=== PATIENT | female | born 1980 | race Caucasian/White ===

== ENCOUNTER 2024-02-11 09:27 | Outpatient (CLI) | payer BC, SELFPAY ==
--- NOTE | ~2024-02-11 | MR_ITS ---
MR breast BI wo/w con 02/15/2024 11:02 CDT INDICATION: Left nipple discharge. TECHNIQUE: MRI of the breasts perform using standard protocol pre-and post IV contrast with the follo wing sequences: Axial T2 STIR, axial T1, axial vibrant T1 with fat suppression precontrast and multip hasic postcontrast. COMPARISON: Screening mammogram dated 09/11/2023, diagnostic mammogram dated 01/13/2024 and ultrasound dated 01/13/2024 FINDINGS: There are no abnormalities on the precontrast sequences. There is mild background parenchym al enhancement. In the upper inner quadrant of the right breast anteriorly at 1:00 there is a 6 x 4 x 4 mm heterogeneously nonmasslike enhancement with rapid plateau enhancement. No evidence of signal a bnormalities in the axillary or internal mammary node distributions. LEFT BREAST: No signal abnormalities on precontrast sequences. There is mild background parenchymal enhancement. In the lower inner quadrant of the left breast posteriorly there is a mass with rapid pl ateau enhancement measuring 5 x 4 x 3 mm. This mass is hypointense on T2 fat suppression, likely kristin gn intramammary lymph node. No evidence of signal abnormalities in the axillary or internal mammary node distributions.] IMPRESSION: 1: Right breast: Focal 6 mm area of nonmass-like enhancement upper inner quadrant of the right breas t anteriorly. Recommend second look ultrasound. BI-RADS CATEGORY 0 - INCOMPLETE STUDY, NEED ADDITIONA L IMAGING EVALUATION. 2: Left breast: Negative. No evidence of malignancy. BI-RADS category 2. Recommend annual mammogr aphy follow-up. Follow-up MRI may be useful for supplementing mammographic evaluation as clinically indicated. Reviewed, dictated and finalized at location A. IMPRESSION: 1: Right breast: Focal 6 mm area of nonmass-like enhancement upper inner quadr ant of the right breast anteriorly. Recommend second look ultrasound. BI-RADS C ATEGORY 0 - INCOMPLETE STUDY, NEED ADDITIONAL IMAGING EVALUATION. 2: Left breast: Negative. No evidence of malignancy. BI-RADS category 2. Re commend annual mammography follow-up. Follow-up MRI may be useful for supplementing mammographic evaluation as clinic ally indicated.
== END 2024-02-11 09:28 | disposition home or self-care (01) ==
LOC: ANHIMG 09:31
PROVIDERS: Visit Provider Surgery
DX: N64.52 Nipple discharge (principal); R92.8 Other abnormal and inconclusive findings on diagnostic imaging of breast
CPT/HCPCS: 77049; A9577; C8908

== ENCOUNTER 2024-02-24 14:18 | Outpatient (CLI) | payer BC, SELFPAY ==
--- NOTE | ~2024-02-24 | US_ITS ---
US breast RT limited 02/24/2024 15:15 Indication: Nonmasslike enhancement seen in the right breast on prior MRI examination performed 2023. Repeat ultrasound recommended for further assessment. Procedure: High-resolution Limited ultrasound of the right breast Comparison: MRI dated 02/11/2024 and mammogram dated 09/11/2023 Findings: No discrete abnormal masses are identified in the area of concern in the right breast in th e upper inner quadrant pain. At 9:00, 6 cm from the nipple there is a 5 mm cyst. At 8:00, 5 cm from t he nipple, there is a 1.4 cm cyst. At 9:00, 4 cm from the nipple there is an oval circumscribed hypoe choic mass with mixed posterior attenuation, parallel orientation measuring 9 mm. No internal vascula rity. At 10:00, 6 cm from the nipple there is an oval circumscribed hypoechoic mass with mixed steam presser ior attenuation, parallel orientation, no internal vascularity measuring 9 mm. Impression: 1: Probable benign right breast masses. No sonographic correlate to area of nonmass-like enhancement seen on previous MRI examination. BI-RADS CATEGORY 3-PROBABLY BENIGN FINDING RECOMMENDATION: Six-month follow-up diagnostic right mammogram and right breast ultrasound recommende d. Reviewed, dictated and finalized at location A. Impression: 1: Probable benign right breast masses. No sonographic correlate to area of non mass-like enhancement seen on previous MRI examination. BI-RADS CATEGORY 3-PROBABLY BENIGN FINDING RECOMMENDATION: Six-month follow-up diagnostic right mammogram and right breast ultrasound recommended.
== END 2024-02-24 14:19 | disposition home or self-care (01) ==
LOC: ANHIMG 14:20
PROVIDERS: Visit Provider Surgery
DX: R92.8 Other abnormal and inconclusive findings on diagnostic imaging of breast (principal)
CPT/HCPCS: 76642

== ENCOUNTER 2024-08-23 09:58 | Outpatient (CLI) | payer OTHER, SELFPAY ==
--- NOTE | ~2024-08-23 | MMUS_ITS ---
EXAMINATION: MM diagnostic melanie BI w chester, US breast BI complete HISTORY: Right breast lump. TECHNIQUE: Additional 3-D tomosynthesis images of the breasts were performed and synthetic 2-D images were generated. CAD analysis was submitted and interpreted. High resolution complete bilateral breas t ultrasound was performed. COMPARISON: Comparison to multiple prior studies sequentially, with oldest reviewed study dated 08/17. BREAST PARENCHYMAL COMPOSITION: Dense: The breasts are extremely dense, which lowers the sensitivity of mammography. FINDINGS: MAMMOGRAPHIC FINDINGS: The breasts are stable. No new masses, calcifications or architectural distortion in either breast to suggest malignancy. ULTRASOUND: Complete US of all 4 quadrants of the breast/s and retroareolar region was reviewed. Right breast: At 6:00, 3 cm from the nipple, there is an oval hypoechoic circumscribed mass measuring 4 mm with parallel orientation, no posterior features and no significant internal vascularity. At 8: 00, 6 cm from the nipple there is an oval hypoechoic mass measuring 11 x 5 x 12 mm with parallel orie ntation, no significant posterior features. There is internal vascularity. At 9:00, 6 cm from the nip ple there is an oval hypoechoic 9 mm mass without posterior features or internal vascularity without significant change from prior study allowing for differences of technique. At 10:00, 6 cm from the ni pple there is an oval parallel oriented hypoechoic 7 mm mass with some posterior acoustic enhancement and no significant internal vascularity, likely benign and unchanged. At 10:00, 6 cm from the nipple there is an oval circumscribed parallel oriented hypoechoic mass measuring 8 x 8 x 3 mm without sign ificant change from prior examination allowing for differences of technique. Left breast: At 4:00, 5 cm from the nipple there is an oval parallel oriented hypoechoic 9 mm mass wi thout posterior features or internal vascularity. IMPRESSION: 1. 12 mm right breast mass at 8:00, 6 cm from the nipple, not definitely seen on prior examination. T here is associated internal vascularity. Ultrasound-guided biopsy recommended. 2. Additional bilateral breast masses described above by ultrasound are likely benign. Six-month foll ow-up limited bilateral breast ultrasound is recommended. BI-RADS category 4, suspicious findings. Reviewed, dictated and finalized at location B. IMPRESSION: 1. 12 mm right breast mass at 8:00, 6 cm from the nipple, not definitely seen o n prior examination. There is associated internal vascularity. Ultrasound-guide d biopsy recommended. 2. Additional bilateral breast masses described above by ultrasound are likely benign. Six-month follow-up limited bilateral breast ultrasound is recommended. BI-RADS category 4, suspicious findings.
== END 2024-08-23 09:59 | disposition home or self-care (01) ==
PROVIDERS: Visit Provider Surgery
DX: N63.41 Unspecified lump in right breast, subareolar (principal); N63.15 Unspecified lump in the right breast, overlapping quadrants; N64.52 Nipple discharge; R92.8 Other abnormal and inconclusive findings on diagnostic imaging of breast
CPT/HCPCS: 76641; 77062; 77066; G0279

== ENCOUNTER 2024-09-28 08:36 | Outpatient (CLI) | payer OTHER, SELFPAY ==
--- NOTE | ~2024-09-28 | MMUS_ITS ---
EXAMINATION: 1. US breast biopsy RT w image 2. MM post biopsy diagnostic RT DATE: 09/28/2024 10:04 INDICATION: 12 mm right breast mass at 8:00. TECHNIQUE: The procedure including the risks, benefits, and alternatives was discussed with the patie nt. Risks discussed included bleeding and infection. The patient understood the risks and agreed to p roceed. The skin of the right breast was prepped and draped in usual sterile fashion. Anesthetic was administered with 1% lidocaine at the skin and 1% lidocaine with epinephrine in the deeper tissue. A 10-gauge vacuum-assisted core biopsy needle was then used to obtain 5 core biopsy specimens under c ontinuous sonographic guidance. A Mammotome HydroMARK open coil marker was placed under sonographic g uidance The entry site was cleaned and dressed. There were no immediate complications. A two-view mammogram was obtained to document marker placement. FINDINGS: Ultrasound images demonstrate the needle in a 12 mm mass in the right breast at 8:00. Breast composition: The breast is extremely dense, which lowers the sensitivity of mammography. Mammogram: There is a marker in the right breast at 8:00. IMPRESSION: 1. Successful ultrasound-guided vacuum-assisted biopsy of a 12 mm mass in the right breast at 8:00 wi th post procedure mammogram for marker placement. Reviewed, dictated and finalized at location A. D AGENT IMPRESSION: 1. Successful ultrasound-guided vacuum-assisted biopsy of a 12 mm mass in the r ight breast at 8:00 with post procedure mammogram for marker placement.
== END 2024-09-28 08:37 | disposition home or self-care (01) ==
PROVIDERS: Visit Provider Surgery
DX: R92.8 Other abnormal and inconclusive findings on diagnostic imaging of breast (principal); D24.1 Benign neoplasm of right breast
CPT/HCPCS: 19083; 77065; 88305; A4648

== ENCOUNTER 2025-02-10 08:12 | Outpatient (CLI) | payer OTHER, SELFPAY ==
--- NOTE | ~2025-02-10 | US_ITS ---
EXAMINATION: US breast BI limited HISTORY: 44yo woman presents after right breast biopsy yielding fibroadenoma for followup US High resolution focused bilateral breast ultrasound was performed. COMPARISON: Reference is made to previous ultrasound dated 09/28/2024 and dating back to 02/24/2024 FINDINGS: ULTRASOUND: Redemonstration of multiple foci within the bilateral breast tissue with identical morphology to this patient's biopsy-proven fibroadenoma for which no further dedicated follow-up is necessary. The previously biopsied site at the 8:00 position of the right breast is not visualized on the static images. In detail: At the 6:00 position of the right breast approximately 3 cm from the nipple is a well-circumscribed a vascular focus of decreased echogenicity measuring 4.1 x 4.1 x 2.3 mm, presumably a fibroadenoma. At the 9:00 position of the right breast approximately 6 cm from the nipple is a well-circumscribed a vascular focus of decreased echogenicity measuring 8.8 x 8.8 x 3.7 mm, presumably a fibroadenoma. At the 10:00 position of the right breast approximately 6 cm from the nipple is a well-circumscribed avascular focus of decreased echogenicity measuring 7.5 x 2.9 x 6.0 mm, presumably a fibroadenoma. Also at the 10:00 position of the right breast approximately 6 cm from the nipple is a well-circumscr ibed avascular focus of decreased echogenicity measuring 8.1 x 2.9 x 7.8 mm, presumably a fibroadenom a. At the 4:00 position of the left breast approximately 5 cm from the nipple is a well-circumscribed av ascular focus of decreased echogenicity measuring 7.7 x 3.8 x 2.5 mm, presumably a fibroadenoma. IMPRESSION: Multiple fibroadenomas within the bilateral breast tissue, now biopsy-proven, for which no further de dicated follow-up is needed Resumption of yearly follow-up mammography is recommended. BI-RADS Category 2: Benign finding(s). Reviewed, dictated and finalized at location A. IMPRESSION: Multiple fibroadenomas within the bilateral breast tissue, now biopsy-proven, f or which no further dedicated follow-up is needed Resumption of yearly follow-up mammography is recommended. BI-RADS Category 2: Benign finding(s).
--- OUTSIDE RECORDS SUMMARY | 2025-02-10 08:19 | XMS_ITS | Referral Summary ---
Author Organization [address] Address [address] [place] [address] Care Team Providers Care Outside Sales Advertising Executive Name Role Phone Alba Mendez Primary Care Provider [phone] Encounters Date Type Department Care Team Description 01/20/2025 1:45 PM REED OR WIND INSTRUMENT REPAIRER Office Visit [facility] Neurosurgery [address] [facility] Medical Office Building [address] [place] [address] David Aragon NP Lumbar disc disease with radiculopathy 11/30/[address] [facility] Scheduling [address] [place] [address] David Aragon NP from Last 3 Months Allergies No known active allergies Medications Edwards-Linyah 0.25-35 mg-mcg per tablet 06/26/2023 Active topiramate (TOPAMAX) 50 mg tablet Take 1 tablet (50 mg total) by mouth nightly at bedtime. 07/03/2024 Active Active Problems Problem Noted Date Diagnosed Date Low back pain 08/04/2023 Scoliosis of thoracolumbar spine 08/04/2023 Immunizations Immunization Administration Dates Next Due DTaP 5 Pertussis 06/16/1985, 2,04/28/1981,01/03,1980 Hep B Vaccine 05/22/2000 Hep B, Unspecified 11/20/2000,06/19/2000 IPV 06/16/1985, 2,01/03/1981,07/10 Influenza, Quadrivalent, Spl it, Intramuscular 09/01/2019,09/03/2018,10/01/2017,09/14,09/11/2014,09/23/2001,08/25/2000 Influenza, Quadrivalent, Spl it, Preservative Free, Intramuscular 11/06/2021,08/30/2020 MMR 05/20/1990,01/02/1982 Tdap 12/17/2015 Tetanus toxoid, adsorbed 04/18/1994 Social History Tobacco Use Types Packs/Day Years Used Date Smoking Tobacco: Never Smokeless Tobacco: Never Tobacco Cessation:Counseling Given: Not Answered AUDIT-C Answer Date Recorded Q1: How often do you have a drink containing alcohol? Never 07/22/2024 Q2: How many drinks containi ng alcohol do you have on a typical day when you are drinking? Patient does not drink Q3: How often do you have si x or more drinks on one occasion? Never 07/22/2024 Comments Unknown Sex and Gender Information Value Date Recorded Sex Assigned at Not on file Legal Sex Female 7:51 AM CDT Gender Identity Female 07/27/2023 1:25 PM CDT Sexual Orientation Straight 07/27/2023 1: 25 PM CDT Last Filed Vital Signs Vital Sign Reading Time Taken Comments Blood Pressure 121/74 07/22/2023 9:26 AM CDT Pulse 69 07/22/2023 9:26 AM CDT Temperature - - Respiratory Rate - - Oxygen Saturation - - Inhaled Oxygen Concentration - - Weight 59 kg (130 lb) 01/20/2025 1:52 PM REED OR WIND INSTRUMENT REPAIRER Height 157.5 cm (5' 2 ) 01/20/2025 1:52 PM REED OR WIND INSTRUMENT REPAIRER Body Mass Index 23.78 01/20/2025 1:52 PM REED OR WIND INSTRUMENT REPAIRER Plan of Treatment Not on file Insurance [facility] Care Teams Outside Sales Advertising Executive Relationship Specialty Start Date End Date Alba Mendez PA [address] [place] [address] PCP - General Family Medicine 05/14/23
--- OUTSIDE RECORDS SUMMARY | 2025-02-10 08:19 | XMS_ITS | Encounter Summary ---
Author Organization [facility] Address [facility] [place] [address] Care Team Providers Care Oil Pipe Inspector Name Role Phone None, Provider Primary Care Provider Nayla Edwards MD Primary Care Provider [phone] Encounter Details Date Type Department Care Team (Late st Contact Info) Description 04/23/2019 Abstract [facility] CONVERSION [address] [place] [address] , Generic Conversion, Social History Tobacco Use Types Packs/Day Years Used Date Smoking Tobacco: Never Assessed Comments Unknown Sex and Gender Information Value Date Recorded Sex Assigned at Not on file Legal Sex Female 9:12 PM QUICK TECHNICIAN Gender Identity Not on file Sexual Orientation Not on file documented as of this encounter Plan of Treatment Not on file documented as of this encounter Visit Diagnoses Not on filedocumented in this encounter Care Teams Oil Pipe Inspector Relationship Specialty Start Date End Date None, ProviderMD PCP - General 04/16/19 01/03/21 Nayla Wynne MD [address] [place] [address] PCP - General FAMILY PRACTICE 01/04/21 documented as of this encounter
--- OUTSIDE RECORDS SUMMARY | 2025-02-10 08:19 | XMS_ITS | Clinical Summary ---
Author Organization [address] Address Formerly [facility] [place] [address] Care Team Providers Care Consulting It Architect Name Role Phone Alba Mendez Primary Care Provider [phone] Allergies No known active allergies Medications Lanier-Linyah 0.25-35 mg-mcg per tablet 06/26/2023 Active topiramate (TOPAMAX) 50 mg tablet Take 1 tablet (50 mg total) by mouth nightly at bedtime. 07/03/2024 Active Active Problems Problem Noted Date Diagnosed Date Low back pain 08/04/2023 Scoliosis of thoracolumbar spine 08/04/2023 Encounters Date Type Department Care Team Description 01/20/2025 1:45 PM OUTSOLE ROUNDER Office Visit [facility] Neurosurgery [facility] [facility] Medical Office Building [address] [place] [address] David Aragon NP Lumbar disc disease with radiculopathy 11/30/2024 Telephone [facility] Scheduling [address] [place] [address] David Aragon NP from Last 3 Months Immunizations Immunization Administration Dates Next Due DTaP 5 Pertussis 06/16/1985, 2,04/28/1981,01/03,1980 Hep B Vaccine 05/22/2000 Hep B, Unspecified 11/20/2000,06/19/2000 IPV 06/16/1985, 2,01/03/1981,07/10 Influenza, Quadrivalent, Spl it, Intramuscular 09/01/2019,09/03/2018,10/01/2017,09/14,09/11/2014,09/23/2001,08/25/2000 Influenza, Quadrivalent, Spl it, Preservative Free, Intramuscular 11/06/2021,08/30/2020 MMR 05/20/1990,01/02/1982 Tdap 12/17/2015 Tetanus toxoid, adsorbed 04/18/1994 Medical History Medical History Date Comments Disc disorder of lumbar region Family History Medical History Relation Name Comments Diabetes Father Heart disease Father Hypertension Father Heart disease Maternal Grandfather Cancer Maternal Grandmother Stroke Maternal Grandmother Hypertension Mother Diabetes Paternal Grandfather Stroke Paternal Grandfather Relation Name Status Comments Father Maternal Grandfather Maternal Grandmother Mother Paternal Grandfather Social History Tobacco Use Types Packs/Day Years [...] Orientation Straight 07/27/2023 1: 25 PM CDT Obstetrics History Last Filed Vital Signs Vital Sign Reading Time Taken Comments Blood Pressure 121/74 07/22/2023 9:26 AM CDT Pulse 69 07/22/2023 9:26 AM CDT Temperature - - Respiratory Rate - - Oxygen Saturation - - Inhaled Oxygen Concentration - - Weight 59 kg (130 lb) 01/20/2025 1:52 PM OUTSOLE ROUNDER Height 157.5 cm (5' 2 ) 01/20/2025 1:52 PM OUTSOLE ROUNDER Body Mass Index 23.78 01/20/2025 1:52 PM OUTSOLE ROUNDER Plan of Treatment Health Maintenance Due Date Last Done Comments Cervical Cancer Screening 1980 Depression Screening 1980 Hepatitis C Screening 1980 Varicella Vaccines (1 of 2 - 13+ 2-dose series) 1993 Regular Well Visit/Exam 18-64 1998 Covid-19 Vaccine (2023- season) 2024 12/03/2021, 01/04/2021, 12/07/2020 Influenza Vaccine (#1) 2024 , 08/30/2020, 09/01/2019, Additional history exists Breast Cancer Screening-Mammogram 09/11/2024 09/11/2023, 08/14/2021 DTaP/Tdap/Td Vaccine (7 - Td or Tdap) 12/17/2025 12/17/2015, 04/18/1994, 06/16/1985, Additional history exists Hepatitis B Screening Completed 11/20/2000 , 06/19/2000, 05/22/2000 HPV Vaccines Aged Out No longer eligi ble based on patient's age to complete this topic Pneumococcal vaccine <65 Aged Out No longer eligible based on patient's age to complete this topic Insurance [facility] [employer] [facility] Care Teams Consulting It Architect Relationship Specialty Start Date End Date Alba Mendez PA [address] [place] [address] PCP - General Family Medicine 05/14/23
--- OUTSIDE RECORDS SUMMARY | 2025-02-10 08:19 | XMS_ITS | Encounter Summary ---
Author Organization [facility] Address [facility] [place] [address] Care Team Providers Care Services Delivery Driver Name Role Phone None, Provider Primary Care Provider Nayla Edwards MD Primary Care Provider [phone] Encounter Details Date Type Department Care Team (Late st Contact Info) Description 06/09/2019 Community Orders [facility] EPICCARE LINK Marcus Luna III, MD [address] [place] [id number] Social History Tobacco Use Types Packs/Day Years Used Date Smoking Tobacco: Never Smokeless Tobacco: Never Alcohol Use Standard Drinks/Week Comments Yes 0 (1 standard drink = 0.6 oz pur e alcohol) Comments No Sex and Gender Information Value Date Recorded Sex Assigned at Not on file Legal Sex Female 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
--- OUTSIDE RECORDS SUMMARY | 2025-02-10 08:19 | XMS_ITS | Clinical Summary ---
Author Organization [facility] Address Formerly [facility] [place] [address] Care Team Providers Care Occupational Medicine Officer Name Role Phone Nayla Wynne MD Primary Care Provider [phone] Allergies No known active allergies Medications MONO-LINYAH 0.25-35 MG-MCG tablet Take 1 tablet by mouth daily. 04/27/2023 Active topiramate (TOPAMAX) 50 MG Tab Take 1 tablet (50 mg total) by mouth nightly at bedtime. at bedtime. Active magnesium 250 MG tablet 11/16/2023 Active vitamin D2, ergocalciferol, (DRISDOL) 1.25 mg capsule TAKE 1 CAPSULE BY MOUTH WEEKLY FOR 12 WEEKS 02/01/2024 Active Cyanocobalamin (VITAMIN B-12) 2500 MCG SL Tab Acti ve Cholecalciferol (VITAMIN D3) 50 MCG (2000 UT) Cap Active Active Problems Problem Noted Date Diagnosed Date Low back pain 08/04/2023 Scoliosis of thoracolumbar spine 08/04/2023 Family History Medical History Relation Comments Diabetes Father Heart Father Hypertension Father Lung Cancer Father Hypertension Mother Relation Status Comments Father Mother Social History Tobacco Use Types Packs/Day Years Used Date Smoking Tobacco: Never Smokeless Tobacco: Never Tobacco Cessation:Counseling Given: Not Answered Alcohol Use Standard Drinks/Week Comments Yes 0 (1 standard drink = 0.6 oz pur e alcohol) Comments No Sex and Gender Information Value Date Recorded Sex Assigned at Not on file Legal Sex Female 9:12 PM PRINTING TABLE WORKER Gender Identity Not on file Sexual Orientation Not on file Last Filed Vital Signs Vital Sign Reading Time Taken Comments Blood Pressure 106/67 09/14/2024 2:00 PM CDT Pulse 94 09/14/2024 12:09 PM CDT Temperature 37.9 C (100.3 F) 09/14/2024 12:09 PM CDT Respiratory Rate 16 09/14/2024 12:09 PM CDT Oxygen Saturation 99% 09/14/2024 2:00 PM CDT Inhaled Oxygen Concentration - - Weight 59.4 kg (131 lb) 09/14/2024 12:09 PM CDT Height 154.9 cm (5' 1 ) 09/14/2024 12:09 PM CDT Body Mass Index 24.75 09/14/2024 12:09 PM CDT Plan of Treatment Health Maintenance Due Date Last Done Comments Cervical Cancer Screening Pap Smear (Age 30 to 64) Every 3 Years 1980 Annual Physical 1983 Hepatitis C 1998 Cervical Cancer Screening Pap with HPV Testing (Age 30 to 64) Every 5 Years 2010 Cervical Cancer Screening with HPV 2010 COVID-19 Vaccine ( season) 2024 Influenza Adult (#1) 2024 11/06/2021, 08/30/2020, 09/01/2019, Additional history exists DTaP, Tdap and Td Vaccines (7 - Td or Tdap) 12/17/2025 12/17/2015, 04/18/1994, 06/16/1985, Additional history exists Mammogram Screening 01/13/2026 01/13/2024, 09/11/2023, 08/14/2021 Hepatitis B Vaccines Completed 11/20/2000, 06/19/2000, 05/22/2000 HPV Vaccines Aged Out No longer eligi ble based on patient's age to complete this topic Meningococcal B Vaccine Aged Out No l onger eligible based on patient's age to complete this topic Meningococcal Vaccine Aged Out No kristian sheyla eligible based on patient's age to complete this topic Pneumococcal Vaccine: Pediatrics (0 to 5 Years) and At-Risk Patients (6 to 64 Years) Aged Out No longer eligible based on patient's age to complete this topic RSV Immunizations Under 20 Months Aged Out No longer eligible based on patient's age to complete this topic Procedures Procedure Name Priority Date/Time Associated Diagnosis Comments MG DIAG W LAURITA LT DIGI Routine 01/13/2024 8:41 AM PRINTING TABLE WORKER Nipple discharge from Last 3 Months or Most Recently Relevant to Health Maintenance Results * MG VALENCIAG W LAURITA LT DIGI (01/13/2024 8:41 AM PRINTING TABLE WORKER) Anatomical Region Laterality Modality Breast Left Mammography, Rad iographic Imaging 01/13/2024 9:07 AM PRINTING TABLE WORKER Narrative 01/13/2024 9:09 AM PRINTING TABLE WORKER Examination(s): LEFT DIGITAL DIAGNOSTIC MAMMOGRAM WITH TOMOSYNTHESIS LEFT US BREAST Rallyhood [id number] Exam Date: 01/13/2024 8:19 AM Clinical Indication: Female 43 years of age nipple discharge is new since last mammogram Comparison: 09/11/2023 Technique: Diagnostic left breast mammogram with standard views and ML view Tomosynthesis imaging acquisition. Study supplemented with computer aided detection program. Static LEFT breast sonographic grayscale images obtained supplemented with Doppler. Tissue density: The breast tissue is heterogeneously dense, which may obscure small masses. MAMMOGRAM FINDINGS: No mass or distortion or calcification. LEFT BREAST ULTRASOUND FINDINGS: Targeted ultrasound performed. Duct ectasia. No mass. IMPRESSION Heterogeneously dense with subareolar duct ectasia. No evidence of malignancy. RECOMMENDATION: 1: Clinical Management Left nipple discharge 2: Routine Screening Mammogram Bilateral August 2024 Clinical discussion based upon her age and personal risk factors is recommended for the following: Annual supplemental screening is encouraged for dense breast tissue. Highest sensitivity and cancer detection rate is with MRI breast with/without IV gadolinium contrast. Recommend alternate 6 months apart between MRI and mammogram for screening. If she cannot tolerate or get approval of MRI, then breast ultrasound screening is an alternative. ASSESSMENT: ACR BI-RADS CATEGORY 2 - BENIGN FINDING(S) Ordered By: MAKI CROFT Interpreted By: Gerald Espinal MD, 01/13/2024 9:07 AM us Maki Shell Croft REFUGE MANAGER MAMMO Final Resul t from Last 3 Months or Most Recently Relevant to Health Maintenance Insurance [employer] Care Teams Occupational Medicine Officer Relationship Specialty Start Date End Date Nayla Wynne MD [address] [facility] [place] [phone] PCP - General FAMILY PRACTICE 01/04/21
--- OUTSIDE RECORDS SUMMARY | 2025-02-10 08:20 | XMS_ITS | Data Portability ---
Author Organization [facility], [address] [facility] ([place]) Address [address] [place] [address] Care Team Providers Care Transition Nurse Name Role Phone NAYLA WYNNE Primary Care Provider NAYLA WYNNE Referring Provider [phone] Assessment Encounter Date Assessment Date Assessment LastModified by Organization Details LastModified Time 12/07/2024 12/07/2024 She has tried various therapies, even Linzess. She had severe diarrhea from this therefore I am going to try her on Trulance 3 mg daily. Explained it can take up to 2 weeks to see the benefits from this medication and we will give her a call to see how she is doing. Encouraged adequate water intake and incorporating more fiber, fresh fruits and vegetables and stool softeners within her daily regimen. Patient verbalized understanding of this plan and had no further questions. von Not available 12/12/2024 09:52:36 Plan of Treatment Reminders Order Date Submit Date Provider Last Modified By Organization Details Last Modified Time Details Appointments None recorded. Lab None recorded. Referral None recorded. Procedures None recorded. Surgeries None recorded. Imaging None recorded. Medication Orders Trulance 3 mg tablet 2024 025 [id number], [address] [place], [place], [id number], 09:50:11 Patient TargetsNo targets recorded. Patient InstructionsNo instructions recorded. Reason for Referral None Reported. Problems Name Problem SNOMED Code Status Onset Date Resolution Date Notes Provider Name and Address Organization Details Recorded Time Irritable bowel syndrome characterized by constipation 082709405 Active 2024 Paula Sue, CONSUMER LENDER, INVENTORY CONTROL ANALYST [address] [place] [address], [phone] 09:49:43 Problem Notes None recorded. Procedures Surgical History Date Name Laterality Status Provider Name and Address Organization Details Recorded Time Colonoscopy with biopsy completed Not Available Health Note 12/01/2024 12:18:53 Imaging Results None recorded. Procedure Notes None recorded. Medical Equipment None Reported. Medications Name Sig Start Date Stop Date Status Note LastModified by Organization Details LastModified Time cyclobenzap rine 10 mg tablet TAKE 1/2 TO 1 TABLET BY MOUTH TWICE DAILY NEEDED FOR NECK PAIN active Not Available Not Available No t Available azithromyci n 250 mg tablet TAKE 2 TABLET BY MOUTH TODAY THEN 1 TABLET DAILY TILL GONE 12/07 completed Not Available Not Available Not Available prednisone 20 mg tablet TAKE 1 TABLET BY MOUTH DAILY 12/07 completed Not Available Not Available Not Available topiramate 25 mg tablet TAKE 2 TABLETS BY MOUTH AT BEDTIME 12/07 completed Not Available Not Available Not Available ergocalcife rol (vitamin D2) 1,250 mcg (50,000 unit) capsule TAKE 1 CAPSULE BY MOUTH WEEKLY FOR 12 WEEKS active Not Available Not Available No t Available albuterol sulfate HFA 90 mcg/actuati on aerosol inhaler INHALE 2 PUFFS BY MOUTH EVERY 4 HOURS NEEDED active Not Available Not Available No t Available ondansetron 4 mg disintegrat ing tablet DISSOLVE 1 TABLET ON THE TONGUE THREE TIMES DAILY NEEDED FOR NAUSEA active Not Available Not Available No t Available cefdinir 300 mg capsule TAKE 1 CAPSULE BY MOUTH TWICE DAILY 12/07 completed Not Available Not Available Not Available Vitamin B6 100 mg tablet Take 1 tablet every day by oral route. 12/07 completed Not Available Not Available Not Available topiramate 50 mg tablet TAKE 1 TABLET AT BEDTIME active Not Available Not Available No t Available magnesium 250mg daily active Not Available Not Available No t Available Estarylla 0.25 mg-0.035 mg tablet TAKE 1 TABLET BY MOUTH DAILY active Not Available Not Available No t Available Trulance 3 mg tablet Take 1 tablet every day by oral route. 2024 active Not Available Not Available Not Avai lable vitamin B12 2,500 mcg-folic acid 400 mcg disintegrat ing tablet Take 1 tablet every day by oral route. active Not Available Not Available No t Available Vitals None Recorded Social History Question Answer Notes LastModified by Organizat ion Details LastModified Time Tobacco Smoking Status Never Smoker Not Available Health Note 12/01/2024 12:18:54 Do You Have An Advance Directive? No [email or web address] Information not available 12/01/2024 What Is Your Level Of Alcohol Consumption? Occasional [email or web address] Information not available 12/01/2024 How Many Times Per Week Do You Consume Alcohol? Less Than 1 Time Per Week [email or web address] Information not available 12/01/2024 What Is Your Level Of Caffeine Consumption? Occasional [email or web address] Information not available 12/01/2024 Are You Currently Employed? 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 1-2 Times Per Week [email or web address] Information not available 12/01/2024 What Was The Date Of Your Most Recent Tobacco Screening? 12/07/2024 [email or web address] Information not available 12/01/2024 What Is Your Relationship Status? [email or web address] Information not available 12/01/2024 Do You Use Any Illicit Or Recreational Drugs? No [email or web address] Information not available 12/01/2024 Sex: Unknown Functional Status Question Answer Note LastModified by Organizat ion Details LastModified Time What is your exercise level? Occasional [email or web address] Information not available 12/01/2024 Mental Status None recorded. Family History Relationship Description Onset Age of this Age Resolved Age Notes LastModified by Organization Details LastModified Time Mother Arthritis [email or web address] Not available 12/01/2024 12:18:52 Mother Chronic obstructive pulmonary disease [email or web address] Not available 2024 12:18:52 Mother Hypertensive disorder [email or web address] Not available 2024 12:18:52 Mother Hypercholest erolemia [email or web address] Not available 2024 12:18:52 Mother Osteoporosis [email or web address] Not availa ble 12/01/2024 12:18:52 Maternal Grandmother Arthritis [email or web address] Not available 11/16 12:18:52 Maternal Grandmother Family history of malignant neoplasm colon- dx at age 90 [email or web address] Not available 12/07/2024 09:37:40 Maternal Grandmother Osteoporosis [email or web address] Not available 0 12/01/2024 12:18:52 Maternal Grandmother Cerebrovascu lar accident [email or web address] Not available 12:18:52 Father Family history of malignant neoplasm [email or web address] Not available 2024 12:18:52 Father Chronic obstructive pulmonary disease [email or web address] Not available 2024 12:18:52 Father Diabetes mellitus [email or web address] Not available 2024 12:18:52 Father Heart disease [email or web address] Not available 2024 12:18:52 Father Hypertensive disorder [email or web address] Not available 2024 12:18:52 Father Hypercholest erolemia [email or web address] Not available 2024 12:18:52 Paternal Grandmother Diabetes mellitus [email or web address] Not available 2024 12:18:52 Maternal Grandfather Heart disease [email or web address] Not available 2024 12:18:52 Paternal Grandfather Cerebrovascu lar accident [email or web address] Not available 12:18:52 Sister Disorder of thyroid gland [email or web address] Not available 2024 12:18:52 Medical History Condition Response Anxiety Disorder N Diabetes N Attention-deficit Hyperactivity Disorder N Bleeding Disorder N High Blood Pressure N Arthritis N Hyperlipidemia N Cancer N Stroke N Thyroid Problems N Asthma N Depression N COPD N Anemia N Seizures N Heart Disease N Fibromyalgia N Osteoporosis N Kidney Disease N Gynecological HistoryNo gynecological history recorded. Obstetrics History GPAL:G 0 P 0 0 0 0 Past Encounters Encounter ID Performer Location Encounter Start Date Encounter Closed Date Diagnosis/Indication Diagnosis SNOMED-CT Code Diagnosis ICD10 Code Diagnosis Note [id number] Paula Sue, CONSUMER LENDER, INVENTORY CONTROL ANALYST [facility] [address] [place] [address] 12/07/2024 09:27:27 12/07/2024 16:24:27 Irritable bowel syndrome characterized by constipation 613817172 K58.1 Health Concerns Section Related Observation LastModified by Organization Detai ls LastModified Time None Recorded Concern Status LastModified by Organization Details LastModified Time None Recorded Advance Directives Directive N: Payers Encounter Date Sequence Insurance Name Policy Number Policy Carty Covered Member ID Carty Member ID Guarantor Name 12/07/2024 1 BERYLJESSICA [id number] Wei Luz [id number] Juhi Simeon Sukh Notes Date Note Type Note Provider Name and Address Organization Details Recorded Time 12/07/2024 text/html 44-year-old female, patient of Dr. Nayla Wynne, referred for evaluation of chronic constipation and abdominal bloating. Patient states she has suffered from constipation for most of her adult life. She may go weeks with no bowel movement. She has tried various qiyt-rwc-hqgpxut meds and even prescription strength Linzess. The MiraLAX causes significant bloating with very little results. She will take 1-2 bisacodyl if she has not had a bowel movement for 7 to 10 days. The Linzess caused extreme, severe diarrhea. She does report associated left upper quadrant abdominal pain but when she gets this abdominal pain this tells her that she needs to have a bowel movement. Otherwise she does not suffer from much pain. She denies any nausea associated with this. She has a well-balanced diet. She does suffer from scoliosis and follows up at [facility]. She gets an MRI done every 6 months. She has undergone a colonoscopy with Dr. Thompson back in July 2023. This was negative. There is a family history of colon cancer in her grandmother who was diagnosed at 90 years old. She denies any blood within her stool otherwise. She is urinating without difficulty. Paula Sue, CONSUMER LENDER, INVENTORY CONTROL ANALYST [address] [facility], [place], [address], [facility] 12/12/2024 09:52:56 OBGyn Episode No OBEpisode recorded.
== END 2025-02-10 08:13 | disposition home or self-care (01) ==
LOC: ANHIMG 08:13
PROVIDERS: PCP Family Medicine; Visit Provider Physician Assistant Surgical
DX: D24.2 Benign neoplasm of left breast (principal); D24.1 Benign neoplasm of right breast
CPT/HCPCS: 76642

== ENCOUNTER 2025-03-08 09:53 | Outpatient (CLI) | payer OTHER, SELFPAY ==
--- NOTE | ~2025-03-08 | MR_ITS ---
MR breast BI wo/w con 03/08/2025 12:07 CDT INDICATION: Dense breast. Benign findings on prior mammography and ultrasound. TECHNIQUE: MRI of the breasts perform using standard protocol pre-and post IV contrast with the follo wing sequences: Axial T2 STIR, axial T1, axial vibrant T1 with fat suppression precontrast and multip hasic postcontrast With 12 cc ProHance administered intravenously. COMPARISON: Comparison to multiple prior studies sequentially, with oldest reviewed study dated 02/10. FINDINGS: There are no abnormalities on the precontrast sequences. There is minimal background parenc hymal enhancement. In the upper inner quadrant of the right breast at 1:00, anterior third, 2.8 cm po sterior to the nipple there is a 7 mm mass with rapid washout enhancement without significant change from prior study, likely benign. No evidence of signal abnormalities in the axillary or internal mamm kei node distributions. LEFT BREAST: No signal abnormalities on precontrast sequences. There is minimal background parenchym al enhancement. In the lower inner quadrant of the left breast at 7:00 posteriorly there is a 4 mm fo cus of rapid washout enhancement. This is characterized as T2 bright and T1 dark precontrast, most li yared benign. No evidence of signal abnormalities in the axillary or internal mammary node distributio ns.] IMPRESSION: 1: Right breast: Negative. No evidence of malignancy. BI-RADS category 1. 2: Left breast: Probable benign focus of rapid washout enhancement lower inner quadrants of the left breast at 7:00, posterior third measuring 4 mm. BI-RADS CATEGORY 3-PROBABLY BENIGN FINDING RECOMMENDATION: Six-month follow-up diagnostic bilateral mammogram and additional ultrasound recommen ded. Reviewed, dictated and finalized at location A. IMPRESSION: 1: Right breast: Negative. No evidence of malignancy. BI-RADS category 1. 2: Left breast: Probable benign focus of rapid washout enhancement lower inner quadrants of the left breast at 7:00, posterior third measuring 4 mm. BI-RADS CATEGORY 3-PROBABLY BENIGN FINDING RECOMMENDATION: Six-month follow-up diagnostic bilateral mammogram and addition al ultrasound recommended.
--- OUTSIDE RECORDS SUMMARY | 2025-03-08 11:15 | XMS_ITS | Encounter Summary ---
Author Organization [facility] Address [facility] [place] [address] Care Team Providers Care Bullard Operator Name Role Phone None, Provider Primary Care Provider Nayla Edwards MD Primary Care Provider [phone] Encounter Details Date Type Department Care Team (Late st Contact Info) Description 06/09/2019 Community Orders [facility] Marcus Luna III, MD [address] [place] [id number] Social History Tobacco Use Types Packs/Day Years Used Date Smoking Tobacco: Never Smokeless Tobacco: Never Alcohol Use Standard Drinks/Week Comments Yes 0 (1 standard drink = 0.6 oz pur e alcohol) Comments No Sex and Gender Information Value Date Recorded Sex Assigned at Not on file Legal Sex Female 9:12 PM CURTAIN WORKER Gender Identity Not on file Sexual Orientation Not on file documented as of this encounter Plan of Treatment Not on file documented as of this encounter Visit Diagnoses Not on filedocumented in this encounter Care Teams Bullard Operator Relationship Specialty Start Date End Date None, Provider, PCP - General 04/16/19 01/03/21 Nayla Wynne MD [address] [facility] [place] [address] PCP - General FAMILY PRACTICE 01/04/21 documented as of this encounter
--- OUTSIDE RECORDS SUMMARY | 2025-03-08 11:15 | XMS_ITS | Data Portability ---
Author Organization [facility], [address] [facility] ([place]) Address [address] [place] [address] Care Team Providers Care Rink Rat Name Role Phone NAYLA WYNNE Primary Care Provider NAYLA WYNNE Referring Provider [phone] Assessment Encounter Date Assessment Date Assessment LastModified [...] Orders Trulance 3 mg tablet 2024 025 [id number], [address] [place], [place], [phone], 09:50:11 Patient TargetsNo targets recorded. Patient InstructionsNo instructions recorded. Reason for Referral None Reported. Problems Name Problem SNOMED Code Status Onset Date Resolution Date Notes Provider Name and Address Organization Details Recorded Time Irritable bowel syndrome characterized by constipation [id number] Active 2024 Paula Sue, CONCHE OPERATOR, ADMISSIONS ADVISOR [address] [place] [address], [phone] 09:49:43 Problem Notes None recorded. 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 Information not available 12/01/2024 How Many [...] available 2024 12:18:52 Medical History Condition Response Diabetes N Anxiety Disorder N Bleeding Disorder N Attention-deficit Hyperactivity Disorder N High Blood Pressure N Arthritis [...] SNOMED-CT Code Diagnosis ICD10 Code Diagnosis Note [id number] Paula Sue, CONCHE OPERATOR, ADMISSIONS ADVISOR [facility] [place] [address] [place] [address] 12/07/2024 09:27:27 12/07/2024 16:24:27 Irritable bowel syndrome characterized by constipation 131649428 K58.1 Health Concerns Section Related Observation LastModified by Organization Detai ls LastModified Time None Recorded Concern Status LastModified by Organization Details LastModified Time None Recorded Advance Directives Directive N: Payers Encounter Date Sequence Insurance Name Policy Number Policy Carty Covered Member ID Carty Member ID Guarantor Name 12/07/2024 1 BERYLJESSICA [id number] Wei Luz [id number] Juhi Simeon Sukh Notes Date Note Type Note Provider Name and Address Organization Details Recorded Time 12/07/2024 text/html 44-year-old female, patient of Dr. Nayla Wynne, referred for evaluation of chronic constipation and abdominal bloating. Patient states she has suffered from constipation for most of her adult life. She may go weeks with no bowel movement. She has tried various pmnc-znq-qpdbmov meds and even prescription strength Linzess. The [...] suffer from scoliosis and follows up at [facility]. She gets an MRI done every 6 months. She has undergone a colonoscopy with Dr. Thompson back in July 2023. This was negative. There is a family history of colon cancer in her grandmother who was diagnosed at 90 years old. She denies any blood within her stool otherwise. She is urinating without difficulty. Paula Sue, CONCHE OPERATOR, ADMISSIONS ADVISOR [address] [facility], [place], [address], [facility] 12/12/2024 09:52:56 OBGyn Episode No OBEpisode recorded.
--- OUTSIDE RECORDS SUMMARY | 2025-03-08 11:15 | XMS_ITS | Clinical Summary ---
Author Organization [address] Address [facility] [place] [address] Care Team Providers Care Library Technology Instructor Name Role Phone Alba Mendez Primary Care Provider [phone] Allergies No known active allergies Medications Ellis-Linyah 0.25-35 mg-mcg per tablet 06/26/2023 Active topiramate (TOPAMAX) 50 mg tablet Take 1 tablet (50 mg total) by mouth nightly at bedtime. 07/03/2024 Active Active Problems Problem Noted Date Diagnosed Date Low back pain 08/04/2023 Scoliosis of thoracolumbar spine 08/04/2023 Encounters Date Type Department Care Team Description 01/20/2025 1:45 PM PUPPET DEVELOPER Office Visit [facility] Neurosurgery [facility] Medical Office Building [address] [place] [address] David Aragon NP Lumbar disc disease with radiculopathy from Last 3 Months Immunizations Immunization Administration [...] 59 kg (130 lb) 01/20/2025 1:52 PM PUPPET DEVELOPER Height 157.5 cm (5' 2 ) 01/20/2025 1:52 PM PUPPET DEVELOPER Body Mass Index 23.78 01/20/2025 1:52 PM PUPPET DEVELOPER Plan of Treatment Health Maintenance Due Date Last Done Comments Cervical Cancer Screening 1980 Depression Screening 1980 Hepatitis C Screening 1980 Varicella Vaccines (1 of 2 - 13+ 2-dose series) 1993 Regular Well Visit/Exam 18-64 1998 Covid-19 Vaccine ( season) 2024 12/03/2021, 01/04/2021, 12/07/2020 Influenza Vaccine [...] patient's age to complete this topic Insurance [facility] Care Teams Library Technology Instructor Relationship Specialty Start Date End Date Alba Mendez PA [address] [place] [address] PCP - General Family Medicine 05/14/23
--- OUTSIDE RECORDS SUMMARY | 2025-03-08 11:15 | XMS_ITS | Encounter Summary ---
Author Organization [facility] Address [facility] [place] [address] Care Team Providers Care Photo Tech Name Role Phone None, Provider Primary Care Provider Nayla Edwards MD Primary Care Provider [phone] Encounter Details Date Type Department Care Team (Late st Contact Info) Description 04/23/2019 Abstract [facility] CONVERSION [address] [place] [address] , Generic Conversion, Social History Tobacco Use Types Packs/Day Years Used Date Smoking Tobacco: Never Assessed Comments Unknown Sex and Gender Information Value Date Recorded Sex Assigned at Not on file Legal Sex Female 9:12 PM CAN FILLER Gender Identity Not on file Sexual Orientation Not on file documented as of this encounter Plan of Treatment Not on file documented as of this encounter Visit Diagnoses Not on filedocumented in this encounter Care Teams Photo Tech Relationship Specialty Start Date End Date None, ProviderMD PCP - General 04/16/19 01/03/21 Nayla Wynne MD [address] [place] [address] PCP - General FAMILY PRACTICE 01/04/21 documented as of this encounter
--- OUTSIDE RECORDS SUMMARY | 2025-03-08 11:15 | XMS_ITS | Referral Summary ---
Author Organization [place] [id number] Address [address] [place] [address] Care Team Providers Care Varnish Thinner Name Role Phone Alba Mendez Primary Care Provider [phone] Encounters Date Type Department Care Team Description 01/20/2025 1:45 PM CAFETERIA WORKER Office Visit [facility] Neurosurgery [address] [facility] Medical Office Building [address] [place] [address] David Aragon, JAILYN Lumbar disc disease with radiculopathy from Last 3 Months Allergies No known active allergies Medications Newport-Linyah 0.25-35 mg-mcg per tablet 06/26/2023 Active topiramate [...] 59 kg (130 lb) 01/20/2025 1:52 PM CAFETERIA WORKER Height 157.5 cm (5' 2 ) 01/20/2025 1:52 PM CAFETERIA WORKER Body Mass Index 23.78 01/20/2025 1:52 PM CAFETERIA WORKER Plan of Treatment Not on file Insurance [facility] [employer] [facility] Care Teams Varnish Thinner Relationship Specialty Start Date End Date Alba Mendez PA [address] [place] [id number] PCP - General Family Medicine 05/14/23
--- OUTSIDE RECORDS SUMMARY | 2025-03-08 11:15 | XMS_ITS | Clinical Summary ---
Author Organization [facility] Address [facility] [place] [address] Care Team Providers Care Tactical Intelligence Officer Name Role Phone Nayla Wynne MD Primary Care Provider [phone] Allergies No known active allergies Medications MONO-LINYAH [...] on file Legal Sex Female 9:12 PM INDIVIDUAL PENSION CONSULTANT Gender Identity Not on file Sexual Orientation [...] HPV 2010 COVID-19 Vaccine ( season) 2024 DTaP, Tdap and Td Vaccines (7 - [...] 5 Years) and At-Risk Patients (6 to 49 Years) Aged Out No longer eligible based on patient's age to complete this topic RSV Immunizations Under 20 Months Aged Out No longer eligible based on patient's age to complete this topic Procedures Procedure Name Priority Date/Time Associated Diagnosis Comments MG DIAG W LAURITA LT DIGI Routine 01/13/2024 8:41 AM INDIVIDUAL PENSION CONSULTANT Nipple discharge from Last 3 Months or Most Recently Relevant to Health Maintenance Results * MG DIAG W LAURITA LT DIGI (01/13/2024 8:41 AM INDIVIDUAL PENSION CONSULTANT) Anatomical Region Laterality Modality Breast Left Mammography, Rad iographic Imaging 01/13/2024 9:07 AM INDIVIDUAL PENSION CONSULTANT Narrative 01/13/2024 9:09 AM INDIVIDUAL PENSION CONSULTANT Examination(s): LEFT DIGITAL DIAGNOSTIC MAMMOGRAM WITH TOMOSYNTHESIS LEFT BREAST [employer] [facility] [id number] Exam Date: 01/13/2024 8:19 AM Clinical Indication: [...] Espinal MD, 01/13/2024 9:07 AM us Maki A Jacqueline WILLOW WORKER MAMMO Final Resul t from Last 3 Months or Most Recently Relevant to Health Maintenance Insurance [employer] Care Teams Tactical Intelligence Officer Relationship Specialty Start Date End Date Nayla Wynne MD [address] [place] [phone] PCP - General FAMILY PRACTICE 01/04/21
== END 2025-03-08 09:54 | disposition home or self-care (01) ==
PROVIDERS: PCP Family Medicine; Visit Provider Surgery
DX: R92.8 Other abnormal and inconclusive findings on diagnostic imaging of breast (principal); R92.343 Mammographic extreme density, bilateral breasts; N64.52 Nipple discharge; N63.13 Unspecified lump in the right breast, lower outer quadrant; N63.23 Unspecified lump in the left breast, lower outer quadrant; N63.15 Unspecified lump in the right breast, overlapping quadrants; N63.11 Unspecified lump in the right breast, upper outer quadrant
CPT/HCPCS: 77049; A9579; C8908

== ENCOUNTER 2025-08-30 10:48 | Outpatient (CLI) | payer OTHER, SELFPAY ==
--- NOTE | ~2025-08-30 | MM_ITS ---
EXAMINATION: MM diagnostic melanie BI w chester HISTORY: One-year follow-up TECHNIQUE: Additional 3-D tomosynthesis images of both breasts were performed and synthetic 2-D images were generated. CAD analysis was submitted and interpreted. COMPARISON: Mammogram from 08/23/2024; breast MRI 03/08/2025 BREAST PARENCHYMAL COMPOSITION: The breasts are heterogeneously dense, which may obscure small masses. FINDINGS: MAMMOGRAPHIC FINDINGS: No suspicious calcifications, masses or areas of architectural distortion in either breast. IMPRESSION: 1. Benign findings in both breasts. Annual screening mammogram recommended. BI-RADS2: Benign Reviewed, dictated and finalized at location Q.
== END 2025-08-30 10:49 | disposition home or self-care (01) ==
PROVIDERS: Visit Provider Surgery
DX: R92.8 Other abnormal and inconclusive findings on diagnostic imaging of breast (principal)
CPT/HCPCS: 77062; 77066; G0279

== ENCOUNTER 2025-09-25 14:17 | Outpatient (CLI) | payer OTHER, SELFPAY ==
--- NOTE | ~2025-09-25 | US_ITS ---
US breast LT limited INDICATION: Follow-up abnormal left breast masses TECHNIQUE: Dedicated Limited left breast ultrasound COMPARISON: 02/10/2025 FINDINGS: The left breast is/are composed of normal heterogeneous echotexture without focal solid or cystic mass. Previously identified mass in the left breast not visualized on the current study. IMPRESSION: 1: Normal left breast ultrasound. Routine yearly screening mammogram and regular clinical breast examination are recommended. BI-RADS CATEGORY 1 - NEGATIVE Reviewed, dictated and finalized at location B. FIC CONTROL SPECIALIST
--- OUTSIDE RECORDS SUMMARY | 2025-09-25 14:22 | XMS_ITS | Encounter Summary ---
Author Organization [facility] Address [address] [place] [address] Care Team Providers Care Computer System Specialist Name Role Phone Nayla Wynne MD Primary Care Provider Unavailab Sujey Livingston MD Unavailable Encounter Details Date Type Department Care Team (Late st Contact Info) Description 05/08/2025 MyCNeuroDermt Message Enc [facility] [address] [place], [place] [phone] [facility] Provider test results Social History Tobacco Use Types Packs/Day Years Used Date Smoking Tobacco: Never Smokeless Tobacco: Never Alcohol Use Standard Drinks/Week Comments Yes 0 (1 standard drink = 0.6 oz pur e alcohol) Comments No Sex and Gender Information Value Date Recorded Sex Assigned at Female 03/28/2025 10:14 AM CDT Legal Sex Female 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 GLOBAL COMMODITY MANAGER Gender Identity Female 04/27/2025 1:14 PM CDT Sexual Orientation Straight 04/27/2025 1: 14 PM CDT documented as of this encounter Plan of Treatment Upcoming Encounters Date Type Department Care Team (Late st Contact Info) Description 09/27/2025 12:00 PM GLOBAL COMMODITY MANAGER Office Visit [facility] [address], [place] [phone] Sujey Brizuela MD [address] [place], [place] [id number] documented as of this encounter Visit Diagnoses Not on filedocumented in this encounter Care Teams Computer System Specialist Relationship Specialty Start Date End Date Nayla Wynne MD PCP - General FAMILY PRACTICE 01/04/21 Sujey Brizuela MD [address] [place] [address] Consulting Physician CARDIOVASCULAR DISEASE 04/14/25 documented as of this encounter
--- OUTSIDE RECORDS SUMMARY | 2025-09-25 14:22 | XMS_ITS | Clinical Summary ---
Author Organization [facility] Address [address] [place] [address] Care Team Providers Care Still Operator Name Role Phone Nayla Wynne MD Primary Care Provider Sujey Acosta MD Unavailable Allergies No known active allergies Medications MONO-LINYAH [...] Acti ve Cholecalciferol (VITAMIN D3) 50 MCG (1999) Cap Active Active Problems Problem Noted Date Diagnosed Date Low back pain 08/04/2023 Scoliosis of thoracolumbar spine 08/04/2023 Encounters Date Type Department Care Team Description 09/21[facility] [address] [place] [address] Sujey Brizuela MD Appointment Request from Last 3 Months Family History Medical History Relation Comments Diabetes [...] AM CDT Legal Sex Female 9:12 PM SEWAGE RETICULATION DRAFTING OFFICER Gender Identity Female 04/27/2025 1:14 PM CDT Sexual Orientation Straight 04/27/2025 1: 14 PM CDT Last Filed Vital Signs Vital Sign Reading Time Taken Comments Blood Pressure 118/78 04/20/2025 10:07 AM CDT Pulse 67 04/20/2025 10:07 AM CDT Temperature 37.9 C (100.3 F) 09/14/2024 12:09 PM CDT Respiratory Rate 16 04/20/2025 10:07 AM CDT Oxygen Saturation 100% 04/20/2025 10:07 AM CDT Inhaled Oxygen Concentration - - Weight 59.2 kg (130 lb 9.6 oz) 04/20/2025 10:07 AM CDT Height 154.9 cm (5' 1) 04/20/2025 10:07 AM CDT Body Mass Index 24.68 04/20/2025 10:07 AM CDT Plan of Treatment Upcoming Encounters Date Type Department Care Team (Late st Contact Info) Description 09/27/2025 12:00 PM SEWAGE RETICULATION DRAFTING OFFICER Office Visit [facility] [address] [place], [place] [phone] Sujey Brizuela MD [address] [place], [place] [phone] Health Maintenance Due Date Last Done Comments Cervical Cancer Screening Pap Smear (Age 30 to 64) Every 3 Years 1980 Annual Physical 1983 Hepatitis C 1998 HPV Vaccines (1 - 3-dose SCDM series) 2007 Cervical Cancer Screening Pap with HPV Testing (Age 30 to 64) Every 5 Years 2010 Cervical Cancer Screening with HPV 2010 PHQ-2 (Physician [place]) 11/16/2024 COVID-19 Vaccine ( season) 2025 12/03/2021, 01/04/2021, 12/07/2020 Influenza Adult (#1) 2025 11/06/2021, 08/30/2020, 09/01/2019, Additional history exists DTaP, Tdap and Td Vaccines (7 - Td or Tdap) 12/17/2025 12/17/2015, 04/18/1994, 06/16/1985, Additional history exists Mammogram Screening 01/13/2026 01/13/2024, 09/11/2023, 08/14/2021 Colorectal Cancer Screening Colonoscopy (10 Years) 07/28/2033 07/28/2023 Hepatitis B Vaccines Completed 11/20/2000, 06/19/2000, 05/22/2000 Hepatitis A Vaccines Aged Out No long er eligible based on patient's age to complete [...] LAURITA LT DIGI Routine 01/13/2024 8:41 AM SEWAGE RETICULATION DRAFTING OFFICER Nipple discharge from Last 3 Months or Most Recently Relevant to Health Maintenance Results * MG DIAG W LAURITA LT DIGI (01/13/2024 8:41 AM SEWAGE RETICULATION DRAFTING OFFICER) Anatomical Region Laterality Modality Breast Left Mammography, Rad iographic Imaging 01/13/2024 9:07 AM SEWAGE RETICULATION DRAFTING OFFICER Narrative 01/13/2024 9:09 AM SEWAGE RETICULATION DRAFTING OFFICER Examination(s): LEFT DIGITAL DIAGNOSTIC MAMMOGRAM WITH TOMOSYNTHESIS LEFT BREAST [employer] [id number] Exam Date: 01/13/2024 8:19 AM Clinical Indication: [...] By: Gerald Espinal MD, 01/13/2024 9:07 AM Maki Croft RETAIL PHARMACY TECHNICIAN MAMMO Final Resul t from Last 3 Months or Most Recently Relevant to Health Maintenance Insurance [employer] Care Teams Still Operator Relationship Specialty Start Date End Date Nayla Wynne MD PCP - General FAMILY PRACTICE 01/04/21 Sujey Brizuela MD [address] [place] [address] Consulting Physician CARDIOVASCULAR DISEASE 04/14/25
--- OUTSIDE RECORDS SUMMARY | 2025-09-25 14:22 | XMS_ITS | Clinical Summary ---
Author Organization [address] Address [address] [place] [address] Care Team Providers Care Loans Consultant Name Role Phone Alba Mendez Primary Care Provider [phone] Allergies No known active allergies Medications [place] 0.25-35 mg-mcg per tablet 06/26/2023 Active Active Problems Problem Noted Date Diagnosed Date Low back pain 08/04/2023 Scoliosis of thoracolumbar spine 08/04/2023 Encounters Date Type Department Care Team Description 07/10/2025 3:29 PM CDT - 07/10/2025 11:59 PM CDT Hospital Encounter [id number] [address] [place] [address] [address] [place] [address] Lumbar disc disease with radiculopathy; Scoliosis of thoracolumbar spine, unspecified scoliosis type; Low back pain, unspecified back pain laterality, unspecified chronicity, unspecified whether sciatica present Discharge Disposition: Discharge to home or self care 07/10/2025 3:15 PM CDT [facility] [address] [place] [phone] Bharathi Owens PA Thoracogenic scoliosis of thoracolumbar region (Primary Dx) 07/10/2025 Orders [facility] [address] [place] [phone] Bharathi Owens PA Low back pain, unspecified back pain laterality, unspecified chronicity, unspecified whether sciatica present (Primary Dx); Lumbar disc disease with radiculopathy; Scoliosis of thoracolumbar spine, unspecified scoliosis type from Last 3 Months Immunizations Immunization Administration [...] - Inhaled Oxygen Concentration - - Weight 59.9 kg (132 lb) 07/10/2025 3:41 PM CDT Height 157.5 cm (5' 2) 07/10/2025 3:41 PM CDT Body Mass Index 24.14 07/10/2025 3:41 PM CDT Plan of Treatment Health Maintenance Due Date Last Done Comments Cervical Cancer Screening 1980 Colon Cancer Screening-Colonoscopy 1980 Depression Screening 1980 Hepatitis C Screening 1980 Varicella Vaccines (1 of 2 - 13+ 2-dose series) 1993 Regular Well Visit/Exam 18-64 1998 HPV Vaccines (1 - 3-dose SCDM series) 2007 Breast Cancer Screening-Mammogram 09/11/2024 09/11/2023, 08/14/2021 Covid-19 Vaccine ( season) 2025 12/03/2021, 01/04/2021, 12/07/2020 Influenza Vaccine (#1) 2025 , 08/30/2020, 09/01/2019, Additional history exists DTaP/Tdap/Td Vaccine (7 - Td or Tdap) 12/17/2025 12/17/2015, 04/18/1994, 06/16/1985, Additional history exists Hepatitis B Screening Completed 11/20/2000 , 06/19/2000, 05/22/2000 Pneumococcal vaccine <65 Aged Out No longer eligible based on patient's age to complete this topic Procedures Procedure Name Priority Date/Time Associated Diagnosis Comments XR SCOLIOSIS AP LAT Schedule Routine, Read Routine (OP Routine) 07/10/2025 3:35 PM CDT Lumbar disc disease with radiculopathy Scoliosis of thoracolumbar spine, unspecified scoliosis type Low back pain, unspecified back pain laterality, unspecified chronicity, unspecified whether sciatica present from Last 3 Months Results * XR Scoliosis Ap and Lateral (07/10/2025 3:35 PM CDT) Anatomical Region Laterality Modality Spine N/A Computed Radiogr aphy 07/10/2025 5:04 PM CDT Impressions 07/10/2025 5:04 PM CDT 1. Unchanged moderate to severe thoracolumbar dextroscoliosis, cervical kyphosis and decreased thoracic kyphosis 2. Unchanged grade 1 anterolisthesis of L4-L5 Electronically signed by: Linda Christensen MD Narrative 07/10/2025 5:04 PM CDT EXAMINATION: XR SCOLIOSIS AP AND LATERAL HISTORY: Lumbar back pain FINDINGS: Standing frontal and lateral radiographs of the entire spine and lower extremities were obtained using the EOS system. Comparison is made to 07/22/2024. Unchanged moderate to severe dextroscoliosis of the thoracolumbar spine, centered at T11. No coronal imbalance or significant pelvic obliquity. Cervical kyphosis and decreased thoracic kyphosis. No sagittal imbalance. Grade 1 anterolisthesis of L4-L5. Mild lower lumbar facet arthropathy. Procedure Note Ira Christensen MD - 07/10/2025 EXAMINATION: XR SCOLIOSIS AP AND LATERAL HISTORY: Lumbar back pain FINDINGS: Standing frontal and lateral radiographs of the entire spine and lower extremities were obtained using the EOS system. Comparison is made to 07/22/2024. Unchanged moderate to severe dextroscoliosis of the thoracolumbar spine, centered at T11. No coronal imbalance or significant pelvic obliquity. Cervical kyphosis and decreased thoracic kyphosis. No sagittal imbalance. Grade 1 anterolisthesis of L4-L5. Mild lower lumbar facet arthropathy. IMPRESSION: 1. Unchanged moderate to severe thoracolumbar dextroscoliosis, cervical kyphosis and decreased thoracic kyphosis 2. Unchanged grade 1 anterolisthesis of L4-L5 Electronically signed by: Linda Christensen MD Bharathi FIGUEROA IMG XR PROCEDURES Mulu l Result from Last 3 Months Insurance [facility] Care Teams Loans Consultant Relationship Specialty Start Date End Date Alba Mendez PA [address] [place] [address] PCP - General Family Medicine 05/14/23
--- OUTSIDE RECORDS SUMMARY | 2025-09-25 14:22 | XMS_ITS | Encounter Summary ---
Author Organization [facility] Address formerly [facility] [place] [address] Care Team Providers Care Client Associate Name Role Phone None, Provider Primary Care Provider Nayla Edwards MD Primary Care Provider Sujey Acosta MD Unavailable Encounter Details Date Type Department Care Team (Late st Contact Info) Description 06/09/2019 Community Orders [facility]ICC[facility] LINK Marcus Luna III, MD [address] [place] [address] Social History Tobacco Use Types Packs/Day Years Used Date Smoking Tobacco: Never Smokeless Tobacco: Never Alcohol Use Standard Drinks/Week Comments Yes 0 (1 standard drink = 0.6 oz pur e alcohol) Comments No Sex and Gender Information Value Date Recorded Sex Assigned at Female 03/28/2025 10:14 AM CDT Legal Sex Female 9:12 PM CARBON CAPTURE POWER PLANT OPERATOR Gender Identity Female 04/27/2025 1:14 PM CDT Sexual Orientation Straight 04/27/2025 1: 14 PM CDT documented as of this encounter Plan of Treatment Upcoming Encounters Date Type Department Care Team (Late st Contact Info) Description 09/27/2025 12:00 PM CARBON CAPTURE POWER PLANT OPERATOR Office Visit [facility] [address] [place] [address] Sujey Brizuela MD [address] [place] [address] documented as of this encounter Visit Diagnoses Not on filedocumented in this encounter Care Teams Client Associate Relationship Specialty Start Date End Date None, Provider, PCP - General 04/16/19 01/03/21 Nayla Wynne MD PCP - General FAMILY PRACTICE 01/04/21 Sujey Brizuela MD [address] [place] [address] Consulting Physician CARDIOVASCULAR DISEASE 04/14/25 documented as of this encounter
--- OUTSIDE RECORDS SUMMARY | 2025-09-25 14:22 | XMS_ITS | Encounter Summary ---
Author Organization [facility] Address [facility] [place] [address] Care Team Providers Care Repairer Welding Systems And Equipment Name Role Phone None, Provider Primary Care Provider Nayla Edwards MD Primary Care Provider Unavailab Sujey Livingston MD Unavailable Encounter Details Date Type Department Care Team (Late Contact Info) Description 04/23/2019 Abstract [facility] CONVERSION [address] [place] [address] , Generic Conversion, Social History Tobacco Use Types Packs/Day Years Used Date Smoking Tobacco: Never Assessed Comments Unknown Sex and Gender Information Value Date Recorded Sex Assigned at Female 03/28/2025 10:14 AM CDT Legal Sex Female 9:12 PM DROP FORGE OPERATOR Gender Identity Female 04/27/2025 1:14 PM CDT Sexual Orientation Straight 04/27/2025 1: 14 PM CDT documented as of this encounter Plan of Treatment Upcoming Encounters Date Type Department Care Team ([facility] Contact Info) Description 09/27/2025 12:00 PM DROP FORGE OPERATOR Office [facility] [address] [place] [address] Sujey Brizuela MD [address] [place], [place] [address] documented as of this encounter Visit Diagnoses Not on filedocumented in this encounter Care Teams Repairer Welding Systems And Equipment Relationship Specialty Start Date End Date None, Provider, PCP - General 04/16/19 01/03/21 Nayla Wynne MD PCP - General FAMILY PRACTICE 2/19/21 Sujey Brizuela MD [address] [place] [address] Consulting Physician CARDIOVASCULAR DISEASE 04/14/25 documented as of this encounter
== END 2025-09-25 14:18 | disposition home or self-care (01) ==
LOC: ANHFOHIMG 14:18
PROVIDERS: Visit Provider Surgery
DX: R92.8 Other abnormal and inconclusive findings on diagnostic imaging of breast (principal)
CPT/HCPCS: 76642